=== PATIENT | female | born 1995 | race Caucasian/White ===

== ENCOUNTER 2017-04-12 16:19 | Emergency (ER) | payer OTHER ==
[2017-04-12 17:05] LABS: Basophils % (Auto) 0.9 % (0.0-1.8); Eosinophils % (Auto) 0.8 % (0.0-4.3); Hematocrit 41.9 % (30.3-42.9); Hemoglobin 14.1 gm/dl (10.1-14.3); Mean Corpuscular HGB Conc 34 % (30-34); Mean Corpuscular Hemoglobin 27 pg (28-32); Mean Corpuscular Volume 81 fl (79-97); Platelet Count 343 K/mm3 (140-440); Red Blood Count 5.19 M/mm3 (3.65-5.03); Red Cell Distribution Width 15.3 % (13.2-15.2); White Blood Count 8.4 K/mm3 (4.5-11.0)
[2017-04-12 17:15] LABS: Bacteria,Urine 1+ /HPF (Negative); Bilirubin,Urine NEG (Negative); Blood,Urine NEG (Negative); Ketones,Urine TR mg/dL (Negative); Leukocyte Esterase,Urine NEG (Negative); Mucus,Urine 3+ /HPF; Nitrite,Urine NEG (Negative)
[2017-04-12 17:23] LABS: Anion Gap 20 mmol/L; BUN/Creatinine Ratio 14.28; Blood Urea Nitrogen 10 mg/dL (7-17); Calcium 9.4 mg/dL (8.4-10.2); Carbon Dioxide 22 mmol/L (22-30); Chloride 104.1 mmol/L (98-107); Glucose 89 mg/dL (65-100); Potassium 4.5 mmol/L (3.6-5.0); Sodium 142 mmol/L (137-145)
[2017-04-12] MEDS ORDERED: NACL 0.9% 1000 ML 1,000 ML IV ONE ×2 (17:30→19:00)
[2017-04-12 17:39] VITALS: BP 108/66
[2017-04-12] MEDS ORDERED: ZOFRAN IV ONE (19:00)
--- NOTE | 2017-04-12 19:04 | Emergency Department Report ---
ED General Adult HPI - General Chief complaint: Nausea/Vomiting/Diarrhea Stated complaint: ABD PAIN AND VOMITING Time Seen by Provider: 04/12/17 18:54 Source: patient Mode of arrival: Ambulatory Limitations: No Limitations - History of Present Illness Initial comments: pt is a 21 y/o aaf with nmh who presents for n/v x 3 days, endorse left side low back paain, - pt denies abominal pain LMP 1 month ago , pt denies fever or chills no pelvic pain no vaginal discharge no dysuria does endorse frequency and urgency last po intake this afternood liquids, last solid intake 1 day ago Onset/Timin -: days(s) Location: abdomen Radiation: non-radiation Severity scale (0 -10): 0 Consistency: constant Worsens with: none Associated Symptoms: nausea/vomiting. denies: confusion, chest pain, cough, diaphoresis, fever/chills, headaches, loss of appetite, malaise, rash, seizure, shortness of breath, syncope, weakness Treatments Prior to Arrival: none - Related Data Previous Rx's Medication Instructions Recorded Last Taken Type Naproxen [Naprosyn TAB] 500 mg PO BID PRN #30 tablet 04/12/17 Unknown Rx Ondansetron [Zofran TAB] 4 mg PO Q8HR PRN #12 tablet 04/12/17 Unknown Rx Allergies Allergy/AdvReac Type Severity Reaction Status Date / Time diphenhydramine HCl Allergy Hives Verified 04/12/17 16:24 [From Benadryl] Penicillins Allergy Hives Verified 04/12/17 16:24 ED Review of Systems ROS: Stated complaint: ABD PAIN AND VOMITING Other details as noted in HPI Constitutional: denies: chills, fever Eyes: denies: eye pain, eye discharge, vision change ENT: denies: ear pain, throat pain Respiratory: denies: cough, shortness of breath, wheezing Cardiovascular: denies: chest pain, palpitations Endocrine: no symptoms reported Gastrointestinal: nausea, vomiting. denies: diarrhea, constipation, hematemesis , melena, hematochezia Genitourinary: denies: urgency, dysuria, discharge Musculoskeletal: denies: back pain, joint swelling, arthralgia Skin: denies: rash, lesions Neurological: denies: headache, weakness, paresthesias Psychiatric: denies: anxiety, depression Hematological/Lymphatic: denies: easy bleeding, easy bruising ED Past Medical Hx - Past Medical History Previous Medical History?: Yes Additional medical history: Sleep apnea - Surgical History Past Surgical History?: No - Social History Smoking Status: Former Smoker Substance Use Type: Marijuana - Medications Home Medications: Home Medications Medication Instructions Recorded Confirmed Last Taken Type Naproxen [Naprosyn TAB] 500 mg PO BID PRN #30 tablet 04/12/17 Unknown Rx Ondansetron [Zofran TAB] 4 mg PO Q8HR PRN #12 tablet 04/12/17 Unknown Rx ED Physical Exam - General Limitations: No Limitations General appearance: alert, in no apparent distress - Head Head exam: Present: atraumatic, normocephalic - Eye Eye exam: Present: normal appearance - ENT ENT exam: Present: mucous membranes moist - Neck Neck exam: Present: normal inspection - Respiratory Respiratory exam: Present: normal lung sounds bilaterally. Absent: respiratory distress - Cardiovascular Cardiovascular Exam: Present: regular rate, normal rhythm. Absent: systolic murmur, diastolic murmur, rubs, gallop - GI/Abdominal GI/Abdominal exam: Present: soft, normal bowel sounds. Absent: distended, tenderness, guarding, rebound, rigid, organomegaly, mass, bruit, hernia - Rectal Rectal exam: Present: deferred - Extremities Exam Extremities exam: Present: normal inspection, full ROM. Absent: tenderness - Back Exam Back exam: Present: normal inspection, CVA tenderness (L). Absent: muscle spasm , paraspinal tenderness, vertebral tenderness, rash noted - Neurological Exam Neurological exam: Present: alert, oriented X3 - Psychiatric Psychiatric exam: Present: normal affect, normal mood - Skin Skin exam: Present: warm, dry, intact, normal color. Absent: rash ED Course Vital Signs 04/12/17 04/12/17 16:25 17:38 Temperature 98.5 F Pulse Rate 99 H Pulse Rate [ 78 Lying] Respiratory 18 Rate Blood Pressure 160/94 Blood Pressure 108/66 [Lying] O2 Sat by Pulse 99 Oximetry ED Medical Decision Making - Lab Data Result diagrams: 04/12/17 16:44 04/12/17 16:44 Laboratory Tests 04/12/17 04/12/17 04/12/17 16:44 16:44 16:44 WBC 8.4 RBC 5.19 H Hgb 14.1 Hct 41.9 MCV 81 MCH 27 L MCHC 34 RDW 15.3 H Plt Count 343 Lymph % (Auto) 25.0 [place] % (Auto) 8.9 H Eos % (Auto) 0.8 Baso % (Auto) 0.9 Lymph # 2.1 [place] # 0.7 Eos # 0.1 Baso # 0.1 Seg Neutrophils % 64.4 Seg Neutrophils # 5.4 Sodium 142 Potassium 4.5 Chloride 104.1 Carbon Dioxide 22 Anion Gap 20 BUN 10 Creatinine 0.7 Estimated GFR > 60 BUN/Creatinine Ratio 14.28 Glucose 89 Calcium 9.4 HCG, Qual Negative Urine Color Urine Turbidity Urine pH Ur Specific [place] Urine Protein Urine Glucose (UA) Urine Ketones Urine Blood Urine Nitrite Urine Bilirubin Urine Urobilinogen Ur Leukocyte Esterase Urine WBC (Auto) Urine RBC (Auto) U Epithel Cells (Auto) Urine Bacteria (Auto) Urine Mucus 04/12/17 Unknown WBC RBC Hgb Hct MCV MCH MCHC RDW Plt Count Lymph % (Auto) [place] % (Auto) Eos % (Auto) Baso % (Auto) Lymph # [place] # Eos # Baso # Seg Neutrophils % Seg Neutrophils # Sodium Potassium Chloride Carbon Dioxide Anion Gap BUN Creatinine Estimated GFR BUN/Creatinine Ratio Glucose Calcium HCG, Qual Urine Color Yellow Urine Turbidity Slightly-cloudy Urine pH 6.0 Ur Specific [place] 1.027 Urine Protein 30 mg/dl Urine Glucose (UA) Neg Urine Ketones Tr Urine Blood Neg Urine Nitrite Neg Urine Bilirubin Neg Urine Urobilinogen 4.0 Ur Leukocyte Esterase Neg Urine WBC (Auto) 4.0 Urine RBC (Auto) 1.0 U Epithel Cells (Auto) 12.0 Urine Bacteria (Auto) 1+ Urine Mucus 3+ - Medical Decision Making pt is a 21 y/o aaf with nmh who presents for n/v x 3 days, endorse left side low back paain, - pt denies abominal pain LMP 1 month ago , pt denies fever or chills no pelvic pain no vaginal discharge no dysuria no frequency, no urgency last po intake is now without n/v, exam: abd obese bs x 4 qds abd soft nontender no rebound no bruit no signs , labs: normal, urine mild bacteria, discussed findings with patient , like viral in nature plan zofran naproxen brat diet follow up with pcp pt verbalized agreement understanding with same. Critical care attestation.: If time is entered above; I have spent that time in minutes in the direct care of this critically ill patient, excluding procedure time. ED Disposition Clinical Impression: Nausea & vomiting Qualifiers: Vomiting type: unspecified Vomiting Intractability: non-intractable Qualified Code(s): R11.2 - Nausea with vomiting, unspecified Disposition: DC-01 TO HOME OR SELFCARE Is pt being admited?: No Does the pt Need Aspirin: No Condition: Good Instructions: Acute Nausea and Vomiting (ED) Prescriptions: Naproxen [Naprosyn TAB] 500 mg PO BID PRN #30 tablet PRN Reason: Pain Ondansetron [Zofran TAB] 4 mg PO Q8HR PRN #12 tablet PRN Reason: Nausea Referrals: PRIMARY CARE,MD [Primary Care Provider] - 3-5 Days Forms: Work/School Release Form(ED) Time of Disposition: 20:02
== END 2017-04-12 20:18 | disposition home or self-care (01) ==
LOC: ED 16:19
DX: R10.9 Unspecified abdominal pain (principal); R11.2 Nausea with vomiting, unspecified
CPT/HCPCS: 36415; 80048; 81001; 84703; 85025; 96361; 96374; 99283; J2405; J7030

== ENCOUNTER 2017-06-05 10:27 | Emergency (ER) | payer SELFPAY ==
--- NOTE | 2017-06-05 10:38 | Emergency Department Report ---
Stated Complaint: MISSED PERIOD NOW BLEEDING Time Seen by Provider: 06/05/17 10:35 - HPI History of Present Illness: PT c/o vaginal bleeding. Started over the weekend. PT states she stopped bleeding yesterday. PT states she recently missed her period for three months. - ROS Review of Systems: - vaginal bleeding currently - dysuria - Exam Physical Exam: obese female, no acute distress gcs 15 MSE screening note: Focused history and physical exam performed. Due to findings the following was ordered: labs ED Disposition for MSE Condition: Stable
[2017-06-05 10:42] VITALS: BP 150/106
[2017-06-05 11:54] LABS: Basophils % (Auto) 1.4 % (0.0-1.8); Hematocrit 42.3 % (30.3-42.9); Hemoglobin 13.8 gm/dl (10.1-14.3); Mean Corpuscular HGB Conc 33 % (30-34); Mean Corpuscular Hemoglobin 27 pg (28-32); Mean Corpuscular Volume 82 fl (79-97); Platelet Count 355 K/mm3 (140-440); Red Blood Count 5.17 M/mm3 (3.65-5.03); Red Cell Distribution Width 15.3 % (13.2-15.2); White Blood Count 8.5 K/mm3 (4.5-11.0)
[2017-06-05 12:11] LABS: Anion Gap 17 mmol/L; BUN/Creatinine Ratio 23; Blood Urea Nitrogen 16 mg/dL (7-17); Calcium 9.5 mg/dL (8.4-10.2); Carbon Dioxide 25 mmol/L (22-30); Glucose 94 mg/dL (65-100); Sodium 139 mmol/L (137-145)
--- NOTE | 2017-06-05 15:57 | Emergency Department Report ---
ED General Adult HPI - General Chief complaint: Vaginal Bleeding Stated complaint: MISSED PERIOD NOW BLEEDING Time Seen by Provider: 06/05/17 10:35 Source: patient Mode of arrival: Ambulatory Limitations: No Limitations - History of Present Illness Initial comments: PT states she did not have her period for three months. PT states she started having heavy bleeding on Sunday or Sunday. PT states now the bleeding has slowed. PT concerned due to irregular cycle. PT afraid she may be . MD Complaint: vaginal bleeding. -: Gradual, days(s) Location: pelvis Severity scale (0 -10): 0 Consistency: now resolved Improves with: none Worsens with: none Associated Symptoms: denies: fever/chills, malaise, nausea/vomiting Treatments Prior to Arrival: none - Related Data Allergies Allergy/AdvReac Type Severity Reaction Status Date / Time diphenhydramine HCl Allergy Hives Verified 04/12/17 16:24 [From Benadryl] Penicillins Allergy Hives Verified 04/12/17 16:24 ED Review of Systems ROS: Stated complaint: MISSED PERIOD NOW BLEEDING Other details as noted in HPI Comment: All other systems reviewed and negative Constitutional: denies: chills, fever Respiratory: denies: cough Gastrointestinal: denies: abdominal pain, nausea, vomiting Genitourinary: abnormal menses. denies: dysuria ED Past Medical Hx - Past Medical History Previous Medical History?: Yes Additional medical history: Sleep apnea - Surgical History Past Surgical History?: No - Social History Smoking Status: Never Smoker Substance Use Type: None ED Physical Exam - General Limitations: No Limitations General appearance: alert, in no apparent distress, obese - Head Head exam: Present: atraumatic, normocephalic, normal inspection - Eye Eye exam: Present: normal appearance, PERRL. Absent: conjunctival injection - ENT ENT exam: Present: normal exam, normal external ear exam - Neck Neck exam: Present: normal inspection, full ROM - Respiratory Respiratory exam: Present: normal lung sounds bilaterally. Absent: respiratory distress, chest wall tenderness - Cardiovascular Cardiovascular Exam: Present: regular rate, normal rhythm, normal heart sounds - GI/Abdominal GI/Abdominal exam: Present: soft. Absent: tenderness - Extremities Exam Extremities exam: Present: normal inspection, full ROM - Back Exam Back exam: Present: normal inspection, full ROM. Absent: CVA tenderness (R), CVA tenderness (L) - Neurological Exam Neurological exam: Present: alert, oriented X3, normal gait - Psychiatric Psychiatric exam: Present: normal affect, normal mood - Skin Skin exam: Present: warm, dry, intact, normal color ED Course Vital Signs 06/05/17 10:36 Temperature 98.2 F Pulse Rate 87 Respiratory 20 Rate Blood Pressure 150/106 O2 Sat by Pulse 98 Oximetry - Reevaluation(s) Reevaluation #1: 06/05/17 15:57 PT aware of lab results. PT aware she will need to follow up with PCP for bp recheck and METER TESTER POLYPHASE for abnormal menstrual cycle. PT has no questions at this time. - Pulse Oximetry Interpretation Digit-Finger Initial Pulse Oximetry Readin Actions Taken: none ED Medical Decision Making - Lab Data Result diagrams: 06/05/17 11:11 06/05/17 11:11 Labs 06/05/17 06/05/17 06/05/17 11:11 11:11 11:11 WBC 8.5 RBC 5.17 H Hgb 13.8 Hct 42.3 MCV 82 MCH 27 L MCHC 33 RDW 15.3 H Plt Count 355 Lymph % (Auto) 30.3 [place] % (Auto) 7.7 H Eos % (Auto) 1.0 Baso % (Auto) 1.4 Lymph # 2.6 [place] # 0.6 Eos # 0.1 Baso # 0.1 Seg Neutrophils % 59.6 Seg Neutrophils # 5.1 Sodium 139 Potassium 4.0 Chloride 101.0 Carbon Dioxide 25 Anion Gap 17 BUN 16 Creatinine 0.7 Estimated GFR > 60 BUN/Creatinine Ratio 23 Glucose 94 Calcium 9.5 HCG, Qual Negative - Differential Diagnosis , miscarraige, amenorrhea Critical Care Time: No Critical care attestation.: If time is entered above; I have spent that time in minutes in the direct care of this critically ill patient, excluding procedure time. ED Disposition Clinical Impression: Irregular menstrual bleeding, Elevated BP without diagnosis of hypertension Disposition: TO HOME OR SELFCARE Is pt being admited?: No Does the pt Need Aspirin: No Condition: Stable Instructions: Menstruation (ED), Hypertension (ED) Additional Instructions: Follow up with PCP in 3-5 days for bp recheck Referrals: NILTON RAINEY MD [Primary Care Provider] - 3-5 Days CORTNEY FERNANDES MD [Staff Physician] - 3-5 Days INESSA DORAN MD [Staff Physician] - 3-5 Days [facility] [Outside] - 3-5 Days Time of Disposition: 16:00
== END 2017-06-05 17:58 | disposition home or self-care (01) ==
LOC: ED 10:27
DX: N92.6 Irregular menstruation, unspecified (principal); Z88.0 Allergy status to penicillin; Z88.8 Allergy status to other drugs, medicaments and biological substances
CPT/HCPCS: 36415; 80048; 84703; 85025; 99283

== ENCOUNTER 2019-05-26 19:39 | Emergency (ER) | payer MEDICAID ==
--- NOTE | 2019-05-26 20:06 | Emergency Department Report ---
Blank Doc - Documentation Documentation: 23-year-old female that presents with left knee pain after popping sensation. This initial assessment/diagnostic orders/clinical plan/treatment(s) is/are subject to change based on patient's health status, clinical progression and re- assessment by fellow clinical providers in the ED. Further treatment and workup at subsequent clinical providers discretion. Patient/guardians urged not to elope from the ED as their condition may be serious if not clinically assessed and managed. Initial orders include: 1- Patient sent to [facility] for further evaluation and treatment 2- xrays
--- NOTE | 2019-05-26 21:35 | XRay Report ---
LEFT KNEE 3 VIEWS INDICATION / CLINICAL INFORMATION: knee pain Stepped off curb and twisted left knee. Sharp and pop intially. Swelling to area. Happened on Sun. Nonlabored. Hurts to bear weight. COMPARISON: None available. FINDINGS: BONES / JOINT(S): No acute fracture or subluxation. No significant arthritis. SOFT TISSUES: No significant abnormality. ADDITIONAL FINDINGS: None. Signer Name: Phani Baumann MD Signed: 05/26/2019 9:31 PM Workstation Name: [id number]
[2019-05-26] MEDS ORDERED: KETOROLAC 60 MG/2 ML INJ IM ONE (22:41)
[2019-05-26] MEDS ORDERED: traMADol 50 MG TAB PO ONE (22:41)
--- NOTE | 2019-05-26 23:00 | Emergency Department Report ---
ED Extremity Problem HPI - General Chief complaint: Extremity Injury, Lower Stated complaint: LEFT KNEE PAIN Time Seen by Provider: 05/26/19 20:05 Source: patient Mode of arrival: Ambulatory Limitations: No Limitations - History of Present Illness Initial comments: 23-year-old female with past medical history of obesity and sleep apnea presents to the hospital complaints of left knee pain since injury 5 days ago. Patient stepped off a curb and twisted her left knee. She fell initial sharp in popping pain. Pain is currently taking rated 8/10 in intensity on the lateral portion of the knee. Pain is worse with movement, palpation, and ambulation. She denies previous injury. She states that initial swelling has improved. She has not taken any medications for pain. Severity scale (0 -10): 6 - Related Data Previous Rx's Medication Instructions Recorded Last Taken Type Ibuprofen [Motrin] 800 mg PO Q8HR PRN #30 tablet 05/26/19 Unknown Rx traMADol [Ultram 50 MG tab] 50 mg PO Q6HR PRN #20 tablet 05/26/19 Unknown Rx Allergies Allergy/AdvReac Type Severity Reaction Status Date / Time diphenhydramine HCl Allergy Hives Verified 04/12/17 16:24 [From Benadryl] Penicillins Allergy Hives Verified 04/12/17 16:24 ED Review of Systems ROS: Stated complaint: LEFT KNEE PAIN Other details as noted in HPI Comment: All other systems reviewed and negative ED Past Medical Hx - Past Medical History Previous Medical History?: Yes Additional medical history: Sleep apnea - Surgical History Past Surgical History?: No - Social History Smoking Status: Current Every Day Smoker Substance Use Type: None - Medications Home Medications: Home Medications Medication Instructions Recorded Confirmed Last Taken Type Ibuprofen [Motrin] 800 mg PO Q8HR PRN #30 tablet 05/26/19 Unknown Rx traMADol [Ultram 50 MG tab] 50 mg PO Q6HR PRN #20 tablet 05/26/19 Unknown Rx ED Physical Exam - General Limitations: No Limitations - Other Other exam information: Gen.: No acute distress Head: Atraumatic Eyes: Normal appearance ENT: Moist mucous membranes Neck: Normal appearance, no posterior midline tenderness, no meningismus Chest: Clear to auscultation bilaterally Cardiovascular: Regular rate and rhythm Abdomen: Normal appearance, soft, nontender, no rebound or guarding, normal bowel sounds Back: Normal appearance, nontender Extremity: Patient fully able to flex and extend left leg. She has tenderness to palpation at the lateral knee joint. No significant swelling noted. No warmth or erythema. Neuro: Alert, oriented 3 clear speech, no focal motor or sensory deficit Psychiatric: Appropriate Skin: No rash ED Course Vital Signs 05/26/19 05/26/19 20:00 20:06 Temperature 98.4 F 98.4 F Pulse Rate 86 86 Respiratory 18 18 Rate Blood Pressure 143/73 Blood Pressure 143/73 [Right] O2 Sat by Pulse 96 96 Oximetry ED Medical Decision Making - Radiology Data Radiology results: report reviewed Left knee x-ray: No acute findings - Medical Decision Making X-ray without fracture. Patient placed in knee immobilizer/Ari wrap, crutches, pain meds and follow up with orthopedics. - Differential Diagnosis fracture, contusion, sprain, meniscus injury, patellar subluxation Critical Care Time: No Critical care attestation.: If time is entered above; I have spent that time in minutes in the direct care of this critically ill patient, excluding procedure time. ED Disposition Clinical Impression: Left knee sprain Disposition: DC-01 TO HOME OR SELFCARE Is pt being admited?: No Does the pt Need Aspirin: No Condition: Stable Instructions: Knee Sprain (ED) Additional Instructions: Take the medication as prescribed. Follow-up with your doctor or with the doctor/clinic provided. Return if symptoms worsen as indicated by your discharge instructions. Prescriptions: Ibuprofen [Motrin] 800 mg PO Q8HR PRN #30 tablet PRN Reason: Pain, Moderate (4-6) traMADol [Ultram 50 MG tab] 50 mg PO Q6HR PRN #20 tablet PRN Reason: Pain Referrals: CARA CRUZ MD [Staff Physician] - 3-5 Days Forms: Work/School Release Form(ED)
[2019-05-27 01:50] VITALS: BP 132/67
== END 2019-05-27 01:51 | disposition home or self-care (01) ==
LOC: ED 19:39
DX: S83.92XA Sprain of unspecified site of left knee, initial encounter (principal); G47.30 Sleep apnea, unspecified; F17.200 Nicotine dependence, unspecified, uncomplicated; Z88.0 Allergy status to penicillin; Z88.8 Allergy status to other drugs, medicaments and biological substances; Z79.899 Other long term (current) drug therapy; W01.198A Fall on same level from slipping, tripping and stumbling with subsequent striking against other object, initial encounter; Y93.89 Activity, other specified; Y92.89 Other specified places as the place of occurrence of the external cause; Y99.8 Other external cause status
CPT/HCPCS: 29505; 73562; 96372; 99283; J1885